=== PATIENT | female | born 1970 | race African-American/Black ===

== ENCOUNTER 2023-12-23 08:32 | Emergency (ER) | payer MEDICARE ==
[~2023-12-23] VITALS: Ht 165.1 cm; Wt 78.0 kg
[2023-12-23 08:38] VITALS: O2SAT 100
[2023-12-23 09:16] LABS: BASOPHILS % 0.9 % (0.0-2.0); EOSINOPHILS % 6.1 % (0.0-5.0); HEMATOCRIT. 41.1 % (36.0-48.0); HEMOGLOBIN. 13.3 g/dL (12.0-16.0); LYMPHOCYTES % 35.2 % (20.0-50.0); MEAN CORPUSCULAR HEMOGLOBIN 29.5 pg (28.0-32.0); MEAN CORPUSCULAR HGB CONC 32.5 g/dL (31.0-37.0); MEAN CORPUSCULAR VOLUME 90.9 fL (81.0-99.0); MEAN PLATELET VOLUME 7.4 fl (7.4-10.4); MONOCYTES % 8.4 % (2.0-8.0); NEUTROPHILS % 49.4 % (40.0-76.0); PLATELET 310 x1000/uL (130-400); RED BLOOD CELL COUNT 4.52 mill/uL (4.2-5.4); RED CELL DISTRIBUTION WIDTH 14.2 % (11.6-14.6); WHITE BLOOD COUNT 4.7 x1000/uL (4.5-11.0)
[2023-12-23 09:18] LABS: CHLORIDE 112 mEq/L (98-107); POTASSIUM 3.6 mEq/L (3.5-5.1); SODIUM 141 mEq/L (136-145)
[2023-12-23 09:19] LABS: CARBON DIOXIDE 25 mEq/L (21-32)
[2023-12-23 09:20] LABS: CALCIUM 9.7 mg/dL (8.7-10.4)
[2023-12-23 09:24] LABS: CREATININE 0.7 mg/dL (0.6-1.0)
[2023-12-23 09:25] LABS: GLUCOSE 100 mg/dL (70-105); UREA NITROGEN BLOOD 11 mg/dL (9-23)
[2023-12-23 09:56] LABS: HCG SCREEN NEGATIVE
[2023-12-23] MEDS ORDERED: AMOX1TAB16 MT (10:18)
[2023-12-23 10:35] VITALS: BP 161/80; PULSE 65; RESP 18; TEMP 36.94740; O2SAT 100
[2023-12-23] MEDS ORDERED: IOHEXOL-300 100 ML BOTTLE ONE (11:38)
== END 2023-12-23 10:42 | disposition home or self-care (01) ==
LOC: ER 08:32
DX: K04.7 Periapical abscess without sinus (principal); R51.9 Headache, unspecified
CPT/HCPCS: 99285; 70487; 80048; 81025; 84703; 85025; 36415; Q9967

== ENCOUNTER 2024-12-22 08:42 | Emergency (ER) | payer MEDICAID, OTHER ==
[~2024-12-22] VITALS: Ht 165.1 cm; Wt 67.0 kg
[~2024-12-22 08:42] MED LIST: AMOX1TAB16 MT
[2024-12-22 09:04] VITALS: O2SAT 100
[2024-12-22 10:39] VITALS: BP 157/77; PULSE 94; RESP 14; TEMP 36.8; O2SAT 100
== END 2024-12-22 10:41 | disposition home or self-care (01) ==
LOC: ER 08:42
DX: S01.81XD Laceration without foreign body of other part of head, subsequent encounter (principal); X58.XXXD Exposure to other specified factors, subsequent encounter
CPT/HCPCS: 99282; Z7610 ×2